=== PATIENT | female | born 1935 | race Caucasian/White ===

== ENCOUNTER → 2016-09-30 | Outpatient (CLI) | payer MEDICARE, OTHER ==
[~2016-09-30] MED LIST: ADVAIR 100-501 EACH INH; CITRACAL + D E1 EACH PO; FLONASE 50 MCG/16 GM NOSE; IRON65 PO; NEXIUM 24HR22.3 MG PO; NORCO 5-325 TA1 EACH PO; OCUVITE SOFTGE1 EACH PO; PLAVIX75 MG PO; PROVENTIL OR V6.7 GM INH; TOPROL XL25 MG PO; XALATAN2.5 ML OPHTH; XIIDRA1 EACH OPHTH; ZESTRIL2.5 MG PO
== END | disposition disaster alternative care site (69) ==
LOC: GRAD 10:21
DX: J32.9 Chronic sinusitis, unspecified (principal)

== ENCOUNTER → 2017-02-28 | Outpatient (CLI) | payer MEDICARE, OTHER | LOC: GRAD 08:42 | DX: I65.23 Occlusion and stenosis of bilateral carotid arteries (principal); I70.0 Atherosclerosis of aorta; I70.1 Atherosclerosis of renal artery; I70.8 Atherosclerosis of other arteries | CPT/HCPCS: Q9967 ==

== ENCOUNTER → 2017-03-05 | Outpatient (CLI) | payer MEDICARE, OTHER | END | disposition disaster alternative care site (69) | LOC: GRAD 09:24 | DX: R41.81 Age-related cognitive decline (principal) ==

== ENCOUNTER 2017-03-08 15:00 | Inpatient (IN) | payer MEDICARE, OTHER ==
[~2017-03-08] VITALS: Ht 154.9 cm; Wt 59.3 kg
--- NOTE | ~2017-03-08 | OR ---
PATIENT'S NAME: ANSELMO JON [facility] AGE: 81 Y [address] ROOM: [place] [address] LOCATION: GPCU ADMIT DATE: 03/16/2017 OR/Procedure Report DISCHARGE DATE: FAMILY PHYSICIAN: Dee Morejon MD ATTENDING PHYSICIAN: CALVIN DEL TORO SURGEON: Calvin Del Toro MD MATTRESS STRIPPER: DATE OF PROCEDURE: 03/16/2017 PREOPERATIVE DIAGNOSIS: High-grade right internal carotid artery stenosis. POSTOPERATIVE DIAGNOSIS: High-grade right internal carotid artery stenosis. PROCEDURE PERFORMED: Right carotid endarterectomy with bovine pericardial patch. UPPER EXTREMITY SURGEON: Rose Mary Alvarado, nurse practitioner. She provided retraction help as well as closure of the wound. ANESTHESIA: General. ESTIMATED BLOOD LOSS: 100 mL. OPERATIVE FINDINGS: Near-occlusive lesion of the right ICA. Neurologically intact at the end of the case. DESCRIPTION OF PROCEDURE: The patient was brought to the operating room, placed supine on the operating table, and prepped and draped in a sterile manner. A preop time-out was performed. The patient received preoperative antibiotics. We made a standard incision along the anterior border of the sternocleidomastoid on the right; transected the platysma; dissected out the internal jugular; identified the facial vein, which was ligated and transected; and dissected out the common, external, internal, as well as superior thyroid. We gave 5000 units of heparin. We clamped on all 3 major arteries, performed a back pressure. Assuring adequate pressure, re-clamped the internal carotid artery. We performed an arteriotomy with an 11 blade as well as Melo scissors. Removed the plaque in its entirety. Then did a standard bovine pericardial patch using 2 running 6-0 Dawn sutures. Clamps were removed. Flow was confirmed with the use of Doppler. Heparin was reversed with the use of protamine. Deep layers were closed with 2-0 and 3-0 Vicryl. Skin was closed with running 4-0 Monocryl. The patient tolerated the procedure well and was transferred to the recovery room and up to the floor. PATIENT'S NAME: ANSELMO JON [facility] AGE: 81 Y [address] ROOM: [place] [address] LOCATION: GPCU ADMIT DATE: 03/16/2017 OR/Procedure Report DISCHARGE DATE: FAMILY PHYSICIAN: Dee Morejon MD ATTENDING PHYSICIAN: CALVIN DEL TORO CALVIN DEL TORO MD FKM/modl /[id number] d: 03/16/17 1859 t: 03/24/17 1720, OPERATIVE SUMMARY
[2017-03-11] MEDS ORDERED: ZESTRIL2.5 MG PO (09:40)
[2017-03-11] MEDS ORDERED: PLAVIX75 MG PO (09:41)
[2017-03-11] MEDS ORDERED: TOPROL XL25 MG PO (09:42)
[2017-03-11] MEDS ORDERED: OCUVITE SOFTGE1 EACH PO (09:42)
[2017-03-11] MEDS ORDERED: CITRACAL + D E1 EACH PO (09:43)
[2017-03-11] MEDS ORDERED: IRON65 PO (09:43)
[2017-03-11] MEDS ORDERED: NEXIUM 24HR22.3 MG PO (09:43)
[2017-03-11] MEDS ORDERED: ADVAIR 100-501 EACH INH (09:44)
[2017-03-11] MEDS ORDERED: PROVENTIL OR V6.7 GM INH (09:45)
[2017-03-11] MEDS ORDERED: FLONASE 50 MCG/16 GM NOSE (09:45)
[2017-03-11] MEDS ORDERED: XALATAN2.5 ML OPHTH (09:47)
[2017-03-11] MEDS ORDERED: XIIDRA1 EACH OPHTH (09:48)
[2017-03-16 11:57] LABS: HEMATOCRIT 28.6 % (30.0-46.0); HEMOGLOBIN 9.9 g/dL (10.0-15.0); MCH 32.2 pg (27.0-34.0); MCHC 34.6 gm/dL (32.0-36.5); MCV 93.2 fl (83.0-98.0); PLATELET COUNT 211 K/uL (150-450); RBC 3.07 M/uL (3.00-5.00); RDW-CV 12.5 % (11.9-14.6); WBC 6.3 K/uL (4.0-11.0)
[2017-03-16 12:12] LABS: ANION GAP 12.3 (10.0-19.0); CALCIUM 8.6 mg/dL (8.5-10.5); CREATININE 1.2 mg/dL (0.5-1.1); POTASSIUM 4.3 mMol/L (3.7-5.1)
[2017-03-16 12:22] LABS: ABSOLUTE NEUTROPHIL CT (ANC) 5.9 K/uL (1.8-7.8); BANDED NEUTROPHIL # 0.4 K/uL (0.0-0.1); BANDED NEUTROPHILS % 6 %; LYMPHOCYTE # 0.4 K/uL (0.8-4.0); LYMPHOCYTE % 7 %; SEGMENTED NEUTROPHIL # 5.5 K/uL (1.8-7.8); SEGMENTED NEUTROPHIL % 87 %
[2017-03-17 07:24] LABS: BASOPHIL % 0.2 %; EOSINOPHIL % 0.2 %; HEMATOCRIT 24.8 % (30.0-46.0); HEMOGLOBIN 8.7 g/dL (10.0-15.0); IMMATURE GRANULOCYTE % 0.4 %; LYMPHOCYTE # 1.2 K/uL (0.8-4.0); LYMPHOCYTE % 20.5 %; MCH 32.3 pg (27.0-34.0); MCHC 35.1 gm/dL (32.0-36.5); MCV 92.2 fl (83.0-98.0); MONOCYTE # 0.6 K/uL (0.0-1.0); MONOCYTE % 10.5 %; MPV 10.5 fl (9.4-12.4); NEUTROPHIL # (ANC) 3.8 K/uL (1.8-7.8); NEUTROPHIL % 68.2 %; NRBC % 0 /100WBC (0-0.00); PLATELET COUNT 225 K/uL (150-450); RBC 2.69 M/uL (3.00-5.00); RDW-CV 12.5 % (11.9-14.6); WBC 5.6 K/uL (4.0-11.0)
[2017-03-17] MEDS ORDERED: NORCO 5-325 TA1 EACH PO (12:36)
== END 2017-03-17 14:20 | disposition disaster alternative care site (69) | DRG 39 ==
LOC: GPCU 03-16 05:36
PROVIDERS: ADMIT Surgery Vascular Surgery
PROC: 03CK0ZZ Extirpation of Matter from Right Internal Carotid Artery, Open Approach (ICD-10-PCS; principal; 2017-03-16)
PROC: 03UK0JZ Supplement Right Internal Carotid Artery with Synthetic Substitute, Open Approach (ICD-10-PCS; 2017-03-16)
DX: I65.21 Occlusion and stenosis of right carotid artery (principal); I10 Essential (primary) hypertension; J45.909 Unspecified asthma, uncomplicated; E78.5 Hyperlipidemia, unspecified
CPT/HCPCS: J1100; J1644; J1650; J2001; J2405; J2720; J3480; J7030; J7050; J7120

== ENCOUNTER → 2017-03-14 | Outpatient (CLI) | payer MEDICARE, OTHER ==
[2017-03-14 17:11] LABS: ALBUMIN 3.9 gm/dL (3.5-5.0); ANION GAP 10.5 (10.0-19.0); CALCIUM 8.8 mg/dL (8.5-10.5); CREATININE 1.2 mg/dL (0.5-1.1); POTASSIUM 4.5 mMol/L (3.7-5.1); TOTAL BILIRUBIN 0.3 mg/dL (0.0-1.5); TOTAL PROTEIN 8.8 g/dL (6.0-8.4)
== END ==
LOC: LNHI 16:53
PROVIDERS: Surgery Vascular Surgery
DX: Z01.818 Encounter for other preprocedural examination (principal); I65.21 Occlusion and stenosis of right carotid artery

== ENCOUNTER 2017-03-20 09:37 | Emergency (ER) | payer MEDICARE, OTHER ==
--- NOTE | ~2017-03-20 | ER ---
PATIENT'S NAME: ANSELMO VELÁZQUEZ [facility] AGE: 81 Y [address] ROOM: [place] [address] LOCATION: [facility] ADMIT DATE: 03/20/2017 ER/Outpatient Report DISCHARGE DATE: FAMILY PHYSICIAN: Physician, Unknown ATTENDING PHYSICIAN: Benoit Mendoza CHIEF COMPLAINT: Stroke-like symptoms. HISTORY OF PRESENT ILLNESS: Ms. Velázquez arrives by ambulance from home. According to family members, the patient was at home this morning when a daughter witnessed the patient to have loss of consciousness with flexing of the right arm. The entire event lasted maybe a few minutes. The family, including a son, notes that she has had multiple neurologic changes over the last month and fluctuate significantly with her speech clearness and some facial asymmetry. The daughter thinks the face is asymmetric, but does not see her nearly as often as the son who thinks it is no different than it was yesterday. The son indicates that her speech is actually better today than it has been in the past, but may be slightly worse than it was yesterday, but not significantly different. The patient has no complaints at all and feels like it is silly to even be here. PAST MEDICAL HISTORY: Documented on the record and reviewed by me. SOCIAL HISTORY: Documented on the record and reviewed by me. MEDICATIONS: Documented on the record and reviewed by me. ALLERGIES: DOCUMENTED ON THE RECORD AND REVIEWED BY ME. REVIEW OF SYSTEMS: All systems were reviewed and negative except as noted in the HPI. PHYSICAL EXAMINATION: VITAL SIGNS: Blood pressure 172/84, pulse 83, respiratory rate 16, temperature 98.0, and SpO2 is 96% on room air. Pain 0/10. GENERAL: An age-appropriate female, recumbent on the exam table, in no apparent pain or distress. NEUROLOGIC: Awake and alert. GCS is 15. No focal deficits. No asymmetry appreciated on my exam. Stroke score is 0. HEENT: Normocephalic and atraumatic. Eyes are PERRL. Oropharynx is clear. PATIENT'S NAME: ANSELMO VELÁZQUEZ [facility] AGE: 81 Y [address] ROOM: [place] [address] LOCATION: [facility] ADMIT DATE: 03/20/2017 ER/Outpatient Report DISCHARGE DATE: FAMILY PHYSICIAN: Physician, Unknown ATTENDING PHYSICIAN: Benoit Mendoza NECK: Supple. Trachea is midline. CHEST: Heart has a regular rate and rhythm with no murmurs. Lungs are clear to auscultation bilaterally with no rhonchi, wheezes, or rales. ABDOMEN: Soft, nontender, and nondistended. No rebound or guarding. BACK: Normal to inspection and palpation. EXTREMITIES: Warm, well formed, and well perfused with no obvious abnormalities. SKIN: Clean, dry, and intact. LABORATORY AND X-RAY DATA: Renal panel with a sodium of 131, baseline. Potassium, chloride, and CO2 are all within normal limits. Creatinine is 1.1. GFR is 48, up from a baseline of 40. Troponin is undetectable. CBC: White count is 5.4, hemoglobin is 9.9, stable from recent hospital admission. INR is 1. EKG reveals sinus rhythm, rate of 75, with first-degree heart block. Otherwise, normal intervals and axis. No other abnormalities. Head CT is unremarkable, per Radiology. IMPRESSION: Transient stroke-like symptoms with no testable deficits at this time. EMERGENCY DEPARTMENT COURSE: The patient was seen and evaluated at bedside as a possible stroke alert. This was canceled quickly after the patient was deemed to be without testable deficits. The family cannot give clear evidence of what her symptoms are at this time. The patient has no complaints and would like to be discharged. Based on her extensive recent workup, intervention with carotid, and already being on Plavix, I do not think she needs further evaluation from that standpoint. She is currently asymptomatic. We discussed the utility of MRI and have decided to forego it today at the patient's request. We will put her on a iron piler as the symptoms she experienced today seemed to be only in the morning and transient. They always happen within a few minutes of getting up. This may be related to her medications and orthostasis. We will have her follow up with her primary care physician after the Holter monitor is done. She should return immediately to the emergency department if there is any worsening as we discussed. All questions were answered, and the patient was discharged. MD GRZEGORZ GALVEZ/williams PATIENT'S NAME: ANSELMO VELÁZQUEZ [facility] AGE: 81 Y [address] ROOM: [place] [address] LOCATION: [facility] ADMIT DATE: 03/20/2017 ER/Outpatient Report DISCHARGE DATE: FAMILY PHYSICIAN: Physician, Unknown ATTENDING PHYSICIAN: Benoit Mendoza /[id number] d: 03/20/17 1158 t: 03/21/17 0750, OUTPATIENT REPORT
[2017-03-20 10:07] LABS: BASOPHIL % 0.2 %; EOSINOPHIL # 0.1 K/uL (0.0-0.5); HEMATOCRIT 29.3 % (30.0-46.0); HEMOGLOBIN 9.9 g/dL (10.0-15.0); IMMATURE GRANULOCYTE % 0.4 %; LYMPHOCYTE # 0.8 K/uL (0.8-4.0); LYMPHOCYTE % 14.3 %; MCH 31.1 pg (27.0-34.0); MCHC 33.8 gm/dL (32.0-36.5); MCV 92.1 fl (83.0-98.0); MONOCYTE # 0.7 K/uL (0.0-1.0); MONOCYTE % 12.7 %; MPV 9.7 fl (9.4-12.4); NEUTROPHIL # (ANC) 3.8 K/uL (1.8-7.8); NEUTROPHIL % 70.4 %; NRBC % 0 /100WBC (0-0.00); PLATELET COUNT 248 K/uL (150-450); RBC 3.18 M/uL (3.00-5.00); RDW-CV 12.5 % (11.9-14.6); WBC 5.4 K/uL (4.0-11.0)
[2017-03-20 10:17] LABS: INR - (THERAPEUTIC) 0.97 (0.92-1.07); PROTIME 10.2 SECONDS (9.8-11.4); PTT 27 SECONDS (25-32)
[2017-03-20 10:30] LABS: ALBUMIN 3.4 gm/dL (3.5-5.0); ANION GAP 12.2 (10.0-19.0); CREATININE 1.1 mg/dL (0.5-1.1); PHOSPHORUS 3.1 mg/dL (2.5-4.9); POTASSIUM 4.2 mMol/L (3.7-5.1)
== END 2017-03-20 11:42 | disposition disaster alternative care site (69) ==
LOC: GMED 09:37
PROVIDERS: Emergency Medicine
DX: R55 Syncope and collapse (principal); I10 Essential (primary) hypertension; J45.909 Unspecified asthma, uncomplicated; E78.00 Pure hypercholesterolemia, unspecified; Z88.0 Allergy status to penicillin; Z88.1 Allergy status to other antibiotic agents; Z88.8 Allergy status to other drugs, medicaments and biological substances; Z79.899 Other long term (current) drug therapy; Z90.710 Acquired absence of both cervix and uterus